=== PATIENT | female | born 1965 | race African-American/Black ===

== ENCOUNTER 2018-03-21 11:40 | Emergency (ER) | payer OTHER ==
[2018-03-21] MEDS ORDERED: ONDANSETRON 4 MG INJ IV (12:42)
[2018-03-21] MEDS ORDERED: HYDROmorphONE 1 MG/5 ML IV SYRINGE IV (12:42)
[2018-03-21] MEDS ORDERED: METHYLPREDNISOLONE 125 MG INJ IV (12:42)
[2018-03-21 13:49] LABS: ADD MAN DIFF? NO
[2018-03-21 13:51] LABS: ABNORMAL IP MESSAGE 1; BASOPHIL # 0.1 10^3/ul (0.0-0.1); BASOPHILS % 1.1 % (0.0-2.0); EOSINOPHILS # 0.3 10^3/ul (0.0-0.5); EOSINOPHILS % 3.9 % (0.0-7.0); HEMATOCRIT 36.6 % (37.0-47.0); HEMOGLOBIN 11.4 g/dl (12.0-16.0); LYMPHOCYTES # 2.6 10^3/ul (0.8-2.9); MEAN CORPUSCULAR HEMOGLOBIN 22.1 pg (29.0-33.0); MEAN CORPUSCULAR HGB CONC 31.1 g/dl (32.0-37.0); MEAN CORPUSCULAR VOLUME 70.8 fl (82.0-101.0); MONOCYTE # 0.6 10^3/ul (0.3-0.9); MONOCYTES % 7.6 % (0.0-11.0); NEUTROPHIL # 4.4 10^3/ul (1.6-7.5); PLATELET COUNT 265 10^3/UL (140-415); RED BLOOD COUNT 5.17 10^6/ul (4.20-5.40); RED CELL DISTRIBUTION WIDTH 15.3 % (11.5-14.5)
[2018-03-21 13:53] LABS: MEAN PLATELET VOLUME 12.3 fl (7.4-10.4); POSITIVE DIFF @See below
[2018-03-21 14:10] LABS: INR 1.75; PROTIME 20.8 Sec (11.9-14.9); PT RATIO 1.6
[2018-03-21 14:11] LABS: PARTIAL THROMBOPLASTIN TIME 32.6 Sec (25.0-35.0)
[2018-03-21 14:15] LABS: ALANINE AMINOTRANSFERASE 24 IU/L (13-69); ALBUMIN 4.2 g/dl (3.3-4.9); ALBUMIN/GLOBULIN RATIO 1.05; ALKALINE PHOSPHATASE 160 IU/L (42-121); ANION GAP 15 (8-16); ASPARTATE AMINO TRANSFERASE 27 IU/L (15-46); BILIRUBIN,INDIRECT 0.2 mg/dl (0-1.1); BILIRUBIN,TOTAL 0.2 mg/dl (0.2-1.3); BLOOD UREA NITROGEN 17 mg/dl (7-20); CALCIUM 9.2 mg/dl (8.4-10.2); CARBON DIOXIDE 25 mmol/L (21-31); CHLORIDE 105 mmol/L (97-110); CREATINE KINASE 64 IU/L (23-200); CREATININE 0.76 mg/dl (0.44-1.00); GLUCOSE 96 mg/dl (70-220); POTASSIUM 4.7 mmol/L (3.5-5.1); SODIUM 140 mmol/L (135-144); TOTAL PROTEIN 8.2 g/dl (6.1-8.1)
[2018-03-21] MEDS: HYDROCODONE/APAP (10/325) TAB PO (14:17)
[2018-03-21] MEDS: IPRATROPIUM (NEB) 0.5 MG/2.5 ML AMP NEB (14:20)
[2018-03-21] MEDS: ALBUTEROL 0.083% (NEB) 2.5 MG/3 ML AMP NEB (14:21)
[2018-03-21] MEDS: HYDROmorphONE 2 MG/ML SYG IM (14:26)
[2018-03-21] MEDS: ONDANSETRON (ODT) 4 MG TAB ODT (14:26)
[2018-03-21] MEDS: predniSONE 20 MG TAB PO (14:26)
[2018-03-21 14:27] LABS: B-TYPE NATRIURETIC PEPTIDE 834 PG/ML (0-125); CK INDEX 0.8; CK-MB 0.51 ng/ml (0.0-2.4); TROPONIN-I < 0.012 ng/ml (0.00-0.12)
[2018-03-21] MEDS: OXYCODONE/ACETAMINOPHEN (10/325) TAB PO (15:18)
== END 2018-03-21 15:25 | disposition home or self-care (01) ==
LOC: E/R 11:40
DX: J20.9 Acute bronchitis, unspecified (principal); R40.2142 Coma scale, eyes open, spontaneous, at arrival to emergency department; R40.2252 Coma scale, best verbal response, oriented, at arrival to emergency department; R40.2362 Coma scale, best motor response, obeys commands, at arrival to emergency department; I50.9 Heart failure, unspecified; F17.210 Nicotine dependence, cigarettes, uncomplicated; R07.9 Chest pain, unspecified; Z79.01 Long term (current) use of anticoagulants
CPT/HCPCS: 71045; 80053; 82550; 82553; 83880; 84484; 85025; 85610; 85730; 93005; 94664; 96372; 99285-25